=== PATIENT | female | born 1985 | race American Indian/Alaskan Native ===

== ENCOUNTER 2016-09-12 19:21 | Outpatient (CLI) | payer OTHER, MEDICAID ==
[2016-09-12 20:32] VITALS: BP 120/71
== END 2016-09-12 20:47 | disposition home or self-care (01) ==
LOC: TRG 19:21
PROVIDERS: ATTEND Obstetrics & Gynecology
DX: O47.1 False labor at or after 37 completed weeks of gestation (principal); Z3A.39 39 weeks gestation of pregnancy
CPT/HCPCS: 59025

== ENCOUNTER 2016-09-14 13:12 | Inpatient (IN) | payer OTHER, MEDICAID ==
[2016-09-14] MEDS ORDERED: ePHEDrine SULFATE IV PRN (14:51)
[2016-09-14] MEDS ORDERED: STADOL IV PRN (14:51)
[2016-09-14] MEDS ORDERED: BRETHINE SUB-Q PRN (14:51)
[2016-09-14] MEDS ORDERED: XYLOCAINE 2% INFILTRATI ONE (14:51)
[2016-09-14] MEDS ORDERED: BRETHINE IVP PRN (14:56)
[2016-09-14] MEDS ORDERED: PITOCin/NS 30 UNIT/500ML 30 UNITS/500 ML BAG IV SCH (15:00)
[2016-09-14] MEDS ORDERED: PITOCin/NS 20 UNIT/1000ML DRIP 20 UNITS/1,000 ML BAG IV SCH (15:00)
[2016-09-14] MEDS ORDERED: LACTATED RINGERS 1,000 ML IV SCH (15:00)
[2016-09-14] MEDS ORDERED: PITOCin/NS 20 UNIT/1000ML DRIP 20,000 MILLIUNITS/1,000 ML BAG IV ONE (15:01)
[2016-09-14] MEDS ORDERED: LACTATED RINGERS 1,000 ML ONE (15:01)
[2016-09-14] MEDS ORDERED: STADOL ONE (15:01)
[2016-09-14 15:41] LABS: Hematocrit 33.8 % (30.3-42.9); Mean Corpuscular HGB Conc 33 % (30-34); Mean Corpuscular Hemoglobin 27 pg (28-32); Mean Corpuscular Volume 84 fl (79-97); Platelet Count 238 K/mm3 (140-440); Red Blood Count 4.02 M/mm3 (3.65-5.03); White Blood Count 8.7 K/mm3 (4.5-11.0)
[2016-09-14] MEDS ORDERED: SUBLIMAZE ONE (16:28)
--- NOTE | 2016-09-14 16:46 | History and Physical Report ---
History of Present Illness Date of admission: 09/14/16 14:27 History of present illness: Presented to labor and delivery complaints of regular contractions. Initial exam in triage revealed the patient was 4 cm dilated. Patient with uncomplicated course except for excessive weight gain over 40 pounds during the . Patient being admitted term in labor. Regularity: regular Menses every: 26 days Duration: 6 LMP: 12/09/2015 LMP reliability: definite LMP character: normal test type: urine test Date: 01/24/2016 BC at conception: none EDC Calculations LMP: 09/14/2016 EDC Confirmation: 09/14/2016 Past History : 3 # 1 Delivery date: 12/2000 Weeks Gestation: term labor: no Delivery type: Anesthesia type: none Delivery location: [facility] Sex: Female weight: 7-6 # 2 Delivery date: 06/2005 Weeks Gestation: term Delivery type: Anesthesia type: none Delivery location: [facility] Sex: Female weight: 6-7 Past Medical History: ? False positive Hep C Past Surgical History: : negative Past Medical History Abnormal PAP: negative MATHEW Exposure: negative Infertility: negative Uterine Anomaly: negative Uterine Surgery (not C/S): negative Other Gynecologic Problems: negative Social Hx: Patient is single Smoking History: Patient has never smoked. Infection History Hx of STD: chlamydia HIV Risk Eval: low risk Hepatitis B Risk Eval: low risk Personal hx. of genital herpes: no Partner hx. of genital herpes: no Rash, Viral, or Febrile illness since last LMP? no Varicella/Chicken Pox Status: Immunized Infection History Comments: GC hx Genetic History Congenital Heart Defect: Mom: no Dad: no Nehemiah Disease: Mom: no Dad: no Thalassemia Mom: no Dad: no Neural Tube Defect Mom: no Dad: no Down's Syndrome Mom: no Dad: no Isaías-Sachs Mom: no Dad: no Sickle Cell Disease/Trait Mom: no Dad: no Hemophilia Mom: no Dad: no Muscular Dystrophy Mom: no Dad: no Cystic Fibrosis Mom: no Dad: no Crescent Chorea Mom: no Dad: no Mental Retardation Mom: no Dad: no Fragile X Mom: no Dad: no Other Genetic/Chromosomal Disorder Mom: no Dad: no Child w/other defect Mom: no Dad: no Enviromental Exposures Xray Exposure: no Medication, drug, or alcohol use since LMP: no Chemical/Other Exposure: no Exposure to Cat Liter: no Hx of Parvovirus (Fifth Disease): no Occupational Exposure to Children: none Current Allergies (reviewed today): No known allergies Past History Past Medical History: other (See HPI) Past Surgical History: other (See HPI) 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) Family/Genetic History: other (See HPI) Social history: other (See HPI) - Obstetrical History Expected Date of Delivery: 09/14/16 Actual Gestation: 40 Week(s) 0 Day(s) : 3 Para: 2 Hx # Term Pregnancies: 2 Number of Pregnancies: 0 Spontaneous Abortions: 0 Induced : 0 Number of Living Children: 2 Medications and Allergies Allergies Allergy/AdvReac Type Severity Reaction Status Date / Time No Known Allergies Allergy Unverified 09/12/16 19:50 Active Meds: Active Medications Butorphanol Tartrate (Stadol) 2 mg IV Q2H PRN PRN Reason: Pain , Severe (7-10) Lactated Ringer's (Lactated Ringers) 1,000 mls @ 125 mls/hr IV DIRECT LUZ ELENA Oxytocin/Sodium Chloride (Pitocin/Ns 20 Unit/1000ml Drip) 20 units in 1,000 mls @ 125 mls/hr IV DIRECT LUZ ELENA Oxytocin/Sodium Chloride (Pitocin/Ns 30 Unit/500ml) 30 units in 500 mls @ 1 mls /hr IV TITR LUZ ELENA; 1 MILLIUNITS/MIN PRN Reason: Protocol Last Admin: 09/14/16 15:59 Dose: 1 milliunits/min, 1 mls/hr Mineral Oil (Mineral Oil) 30 ml PO QHS PRN PRN Reason: Constipation - Vital Signs Vital signs: Vital Signs Pulse BP 82 151/89 09/14/16 13:34 09/14/16 13:34 Temp Pulse Resp BP Pulse Ox 98.5 F 75 20 141/85 97 09/14/16 15:35 09/14/16 15:42 09/14/16 15:35 09/14/16 15:42 09/14/16 15:33 - Physical Exam Breasts: Positive: deferred Cardiovascular: Regular rate Lungs: Positive: Normal air movement Abdomen: Positive: normal appearance, soft, other (tattoos) Genitourinary (Female): Positive: normal external genitalia Anus/Rectum: Positive: normal perianal skin Extremities: Positive: normal - Obstetrical FHR: category 1 Uterine Contraction Monitor Mode: External Uterine Contraction Pattern: Regular Uterine Contraction Intensity: Strong/Firm Results Result Diagrams: 09/14/16 15:25 Abnormal lab results 09/14/16 Range/Units 15:25 MCH 27 L (28-32) pg RDW 16.0 H (13.2-15.2) % All other labs normal. Assessment and Plan - Patient Problems (1) 40 weeks gestation of Current Visit: Yes Status: Acute (2) Active labor at term Current Visit: Yes Status: Acute Plan to address problem: Admit to labor and delivery follow normal labor protocol. See orders in chart
[2016-09-14] MEDS ORDERED: SUBLIMAZE IV ONE (17:00)
--- NOTE | 2016-09-14 17:33 | Procedure Note ---
OB Delivery Note - Delivery Date of Delivery: 09/14/16 Surgeon: ELIDIA MARTINEZ Estimated blood loss: other (400cc) - Vaginal Delivery presentation: vertex Delivery position: OA Intrapartum events: none Delivery induction: none Delivery monitor: external FHT, external uterine Route of delivery: Delivery placenta: spontaneous Episiotomy: none Delivery laceration: 1st degree Anesthesia: intravenous - Infant A at 1 minute: 8 at 5 minutes: 9 Gender: Male
[2016-09-14] MEDS ORDERED: DULCOLAX PR PRN (18:39)
[2016-09-14] MEDS ORDERED: TYLENOL PO PRN (18:39)
[2016-09-14] MEDS ORDERED: MILK OF MAGNESIA PO PRN (18:39)
[2016-09-14] MEDS ORDERED: SODIUM CHLORIDE FLUSH SYRINGE 10 ML IV NR (18:39)
[2016-09-14] MEDS ORDERED: LANSINOH TP PRN (18:39)
[2016-09-14] MEDS ORDERED: PHENERGAN PO PRN (18:39)
[2016-09-14] MEDS ORDERED: BENADRYL PO PRN (18:39)
[2016-09-14] MEDS ORDERED: TUCKS PAD TP PRN (18:39)
[2016-09-14] MEDS ORDERED: DERMOPLAST TP PRN (18:39)
[2016-09-14] MEDS: NORCO 5/325 PO PRN (18:58)
[2016-09-14] MEDS ORDERED: MINERAL OIL PO PRN (22:00)
[2016-09-14] MEDS: MOTRIN PO SCH (23:05)
[2016-09-15] MEDS: MOTRIN PO SCH ×3 (01:00→20:50)
[2016-09-15] MEDS: NORCO 5/325 PO PRN ×3 (01:30→20:50)
[2016-09-15 08:04] LABS: Hematocrit 29.9 % (30.3-42.9); Hemoglobin 9.6 gm/dl (10.1-14.3)
--- NOTE | 2016-09-15 08:22 | Progress Note ---
Assessment and Plan - Patient Problems (1) 40 weeks gestation of Current Visit: Yes Status: Acute (2) Active labor at term Current Visit: Yes Status: Acute (3) Encounter for full-term uncomplicated delivery Current Visit: Yes Status: Acute Subjective - Subjective Patient reports: appetite normal (patient was dizzy with first ambulation now no problem), voiding normally, pain well controlled, ambulating normally : doing well (Some problems with latching on) Objective - Vital Signs Latest vital signs: Vital Signs Temp Pulse Pulse Resp BP BP Pulse Ox 09/14/16 23:40 98.6 F 74 16 124/72 09/14/16 19:40 98.6 F 72 22 142/72 09/14/16 18:25 104 H 16 160/82 09/14/16 18:15 97.2 F L 09/14/16 18:09 85 130/77 09/14/16 17:51 77 167/93 09/14/16 17:40 74 167/88 09/14/16 17:25 74 174/126 09/14/16 17:10 82 150/91 09/14/16 15:42 75 141/85 09/14/16 15:35 98.5 F 20 141/85 09/14/16 15:33 75 146/84 97 09/14/16 15:20 18 09/14/16 13:45 98.2 F 136/78 09/14/16 13:35 80 136/78 09/14/16 13:34 82 151/89 Intake and Output 09/14/16 09/15/16 09/15/16 21:59 06:59 14:59 Intake Total Output Total Balance Intake: Oral Intake, Free Water Output: Urine Void Other: Total, Intake Amount Total, Output Amount Voiding Method # Voids Void Estimated Blood Loss - Exam Breasts: Present: normal Cardiovascular: Present: Regular rate Abdomen: Present: normal appearance, soft Uterus: Present: normal, firm Extremities: Present: normal, edema - Labs Labs: Abnormal lab results 09/14/16 09/15/16 Range/Units 15:25 07:35 Hgb 9.6 L (10.1-14.3) gm/dl Hct 29.9 L (30.3-42.9) % MCH 27 L (28-32) pg RDW 16.0 H (13.2-15.2) %
[2016-09-15] MEDS: COLACE PO SCH ×2 (14:48→22:00)
[2016-09-15] MEDS: PRENATAL VITAMIN PO SCH (14:50)
[2016-09-16] MEDS: MOTRIN PO SCH ×3 (05:08→11:59)
--- NOTE | 2016-09-16 08:26 | Discharge Summary ---
Providers - Providers Date of Admission: 09/14/16 14:27 Date of discharge: 09/16/16 (pt desires d/c ) Attending physician: ELIDIA MARTINEZ 09/14/16 18:39 Consult to Statistician Theoretical [CONS] Routine Reason For Exam: assistance with , SNS Primary care physician: ELIDIA MARTINEZ Hospitalization Reason for admission: active labor Delivery: Episiotomy: none Laceration: none Incision: normal Other procedures: none complications: none Discharge diagnosis: IUP at term delivered baby: male Hospital course: uncomplicated vaginal delivery Pt w/o complaint VSS FF below umb Lochia small Perineum intact H&H9/29 drop r/t blood loss from delivery Pt is asymptomatic Doing well s/p vag del P: d/c today with instructions RX'es provided Condition at discharge: Good Disposition: DISCHARGED TO HOME OR SELFCARE - Discharge Diagnoses (1) Encounter for full-term uncomplicated delivery Status: Acute Comment: rto 4-6 weeks for PP care 1 week for circ Plan - Discharge Medications Prescriptions: Docusate Sodium [Colace] 100 mg PO BID PRN #60 capsule PRN Reason: Constipation Ferrous Sulfate [Feosol 325 MG tab] 325 mg PO BID #60 tablet Ibuprofen [Motrin 800 MG tab] 800 mg PO TID PRN #30 tablet PRN Reason: Pain Lidocain2.5%/Prilocai2.5% [Emla] 5 gm TP PRN #1 tube - Provider Discharge Summary Activity: routine, no sex for 6 weeks, no heavy lifting 4 weeks, no strenuous exercise Diet: routine Instructions: routine Additional instructions: [] Smoking cessation referral if applicable(refer to patient education folder for contact #) [] Refer to [facility] Booklet Call your doctor immediately for: * Fever > 100.5 * Heavy vaginal bleeding ( >1 pad per hour) * Severe persistent headache * Shortness of breath * Reddened, hot, painful area to leg or breast * Drainage or odor from incision. * Keep incision clean and dry at all times and follow doctor's instructions regarding bathing/showering - Follow up plan Follow up: ELIDIA MARTINEZ MD [Primary Care Provider] - 6 Weeks (Please call [phone] to schedule your visit in 4-6 weeks and your son's circumcision in 1 week. Bring the EMLA cream with you to his visit. Take medications as prescribed. Call with concerns. )
[2016-09-16] MEDS ORDERED: DEPO-PROVERA (CONTRACEPTION) IM ONE ×2 (08:27→14:36)
[2016-09-16 09:36] VITALS: BP 106/50
[2016-09-16] MEDS: COLACE PO SCH (10:53)
[2016-09-16] MEDS: PRENATAL VITAMIN PO SCH (10:53)
[2016-09-16] MEDS: NORCO 5/325 PO PRN (11:59)
== END 2016-09-16 15:15 | disposition home or self-care (01) | DRG 775 ==
LOC: TRG 13:12 → LD 14:27 → OB 18:28
PROVIDERS: ADMIT Obstetrics & Gynecology; ATTEND Obstetrics & Gynecology
PROC: 10E0XZZ Delivery of Products of Conception, External Approach (ICD-10-PCS; principal; 2016-09-14)
PROC: 0HQ9XZZ Repair Perineum Skin, External Approach (ICD-10-PCS; 2016-09-14)
DX: O70.0 First degree perineal laceration during delivery (principal); R71.0 Precipitous drop in hematocrit; Z3A.40 40 weeks gestation of pregnancy; Z37.0 Single live birth
CPT/HCPCS: 36415; 85014; 85018; 85027; 86850; 86900; 86901; 99211; G0463; J0595; J1050; J2590; J3010; J7120

== ENCOUNTER 2020-04-05 10:14 | Day surgery (SDC) | payer MEDICAID ==
--- NOTE | 2020-04-03 16:29 | History and Physical Report ---
History of Present Illness Date of examination: 04/03/20 History of present illness: Patient has been reassessed/reevaluated. H&P has been reviewed. No interval changes. This is a 34 years old female who presents with menstrual disorder. She complains of heavy bleeding.. Has tried OCPs, NSAIDs, and now is using Lysteda. Pt states she likes the Lysteda but it is too expensive. Denies SOB, chest pain, lightheadedness, blurry vision, or dizziness with cycles. Reports regular monthly cycles q 26 days lasting 6-7 day with heavy bleeding. Changes pads q 1 to 2 hours. Has a hx of abnormal pap. Patient's work up has included hysterosonogram which revealed normal uterine finding and a benign endometrial biposy. Patient's symptoms when present disrupts her normal daily activities Patient desires definitive treatment Vital Signs: Patient Profile: 34 Years Old Female LMP: 03/16/2020 Height: 65 inches (165.10 cm) Weight: 271 pounds BMI: 45.09 Temp: 98.1 degrees F BP sittin / 80 (left arm) Menstrual History: LMP (date): 03/16/2020 On BCP's at conception: no Current Method of Contraception: None Date of Last Pap Smear: 04/30/2019 Past History : 3 Term Births: 3 Premature Births: 0 Living Children: 3 Para: 3 Aborta: 0 Elect. Ab: 0 Spont. 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 of genital herpes: yes Partner hx. of genital herpes: no Hx of STD: chlamydia Other: GC hx Current Allergies: No known allergies Past Medical History: Negative Past Medical History Past Surgical History: Negative Family History Summary: General Comments - FH: Family History of Diabetes Family History of Hypertension Social History: Patient is single Smoking History: Patient has never smoked. Risk Factors: Smoked Tobacco Use: Never smoker Smokeless Tobacco Use: Never Passive smoke exposure: no Drug use: no HIV high-risk behavior: no Caffeine use: 0 drinks per day Alcohol use: yes Type: occ Exercise: yes Times per week: 5 Seatbelt use: 100 % PAP Smear History: Date of Last PAP Smear: 04/30/2019 Review of Systems General Complains of fatigue. Denies fever, chills, sweats, anorexia, weakness, malaise, weight loss and sleep disorder. Complains of menorrhagia. Denies vaginal discharge, incontinence, dysuria, hematuria, urinary frequency, amenorrhea, abnormal vaginal bleeding, pelvic pain, genital sores, decreased libido, painful periods, painful sex, urinary urgency, hot flashes, vaginal dryness, vaginal itching and vaginal odor. CV Denies chest pains, palpitations, syncope, dyspnea on exertion, orthopnea, PND and peripheral edema. Resp Denies cough, dyspnea at rest, excessive sputum, hemoptysis, wheezing and pleurisy. GI Denies nausea, vomiting, diarrhea, constipation, change in bowel habits, abdominal pain, melena, hematochezia, jaundice, gas/bloating, indigestion/heartburn, dysphagia and odynophagia. Breast Denies left breast lump, right breast lump, nipple discharge, bloody discharge from nipple, breast pain, abnormal mammogram and breast enlargement. Psych Denies depression, anxiety, irritability and mood swings. Past History Past Medical History: No medical history, other (SEE HPI ) Past Surgical History: No surgical history (SEE HPI FOR DETAILS), Other (SEE HPI FOR DETAILS) Social history: full code, other (SEE HPI FOR DETAILS) Family history: other (SEE HPI FOR DETAILS) Medications and Allergies Allergies Allergy/AdvReac Type Severity Reaction Status Date / Time No Known Allergies Allergy Verified 04/05/20 11:10 Home Medications Medication Instructions Recorded Confirmed Last Taken Type No Known Home Medications [No 04/03/20 04/05/20 Unknown History Reported Home Medications] Review of Systems Constitutional: other (SEE HPI FOR DETAILS) Exam - Physical Exam Narrative exam: HEENT: normocephalic, no lesions or deformities Skin no ulcers, xanthomas Chest: respiratory effort normal, clear to auscultation CV: regular, normal S1-S2, no murmur, no rub, no gallop Abdomen: Obese, soft, non-tender, no masses Neuro: no gross anomalities Extremities: no edema 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 No evidence of cystocele or rectocele. Cervix: normal appearance, no lesions, no discharge Uterus: unable to palpate due to obesity Adnexae: unable to palpate due to obesity Rectovaginal: exam defered Results - Labs CBC & Chem 7: 04/04/20 08:45 Assessment and Plan - Patient Problems (1) Menorrhagia Current Visit: No Status: Acute Qualifiers: Menorrhagia type: with regular cycle Qualified Code(s): N92.0 - Excessive and frequent menstruation with regular cycle Plan to address problem: Medical and surgical treatment options discussed Conservative therapies have failed. Patient desires definitive treatment Patient desires definitive treatment Patient desire endometrial ablation. She understands that this procedure only treats bleeding and is not a treatment for dysmenorrhea or myomas. Discussed risk of surgery including infection, bleeding and risk of perforating her uterus. Discuused postoperative symptom of vaginal duscharge and uterine cramping. Questions answered. Patient understands and desires to proceed (2) Body mass index 45.0-49.9, adult Current Visit: No Status: Chronic
[2020-04-04 09:10] LABS: Hematocrit 34.9 % (30.3-42.9); Hemoglobin 11.8 gm/dl (10.1-14.3); Mean Corpuscular HGB Conc 34 % (30-34); Mean Corpuscular Volume 83 fl (79-97); Platelet Count 317 K/mm3 (140-440); Red Blood Count 4.23 M/mm3 (3.65-5.03)
[~2020-04-05 10:14] MED LIST: LACTATED RINGERS 1,000 ML IV SCH; MIDAZOLAM 2 MG/2 ML INJ IV NR
[2020-04-05] MEDS ORDERED: ONDANSETRON 4 MG/2 ML INJ IV PRN (10:28)
--- NOTE | 2020-04-05 10:28 | Anesthesia Day of Surgery ---
Anesthesia Day of Surgery - Day of Surgery Patient Examined: Yes Patient H&P Reviewed: Yes Patient is NPO: Yes
--- NOTE | 2020-04-05 10:28 | Anesthesia Consultation ---
Anesthesia Consult and Med Hx Date of service: 04/05/20 - Airway Anesthetic Teeth Evaluation: Good ROM Head & Neck: Adequate Mental/Hyoid Distance: Adequate Mallampati Class: Class II Intubation Access Assessment: Probably Good - Pulmonary Exam CTA: Yes - Cardiac Exam Cardiac Exam: RRR - Pre-Operative Health Status ASA Pre-Surgery Classification: ASA2 Proposed Anesthetic Plan: General - Pulmonary Hx Smoking: No Hx Respiratory Symptoms: No Hx Sleep Apnea: No - Cardiovascular System Hx Hypertension: No Hx Heart Attack/AMI: No - Central Nervous System CVA: No - Gastrointestinal Hx Gastroesophageal Reflux Disease: No - Endocrine Hx Renal Disease: No Hx Liver Disease: No Hx Insulin Dependent Diabetes: No Hx Non-Insulin Dependent Diabetes: No Hx Thyroid Disease: No - Other Systems Hx Obesity: Yes (BMI 43) - Additional Comments Anesthesia Medical History Comments: No hx anesthetic complications.
[2020-04-05] MEDS ORDERED: propofoL 200 MG/20 ML VIAL IV ONE (11:59)
[2020-04-05] MEDS ORDERED: SODIUM CHLORIDE 0.9% IRRIG SOLN 3000 ML IR ONE (12:00)
[2020-04-05] MEDS ORDERED: KETOROLAC 30 MG/1 ML INJ ONE (12:06)
[2020-04-05] MEDS ORDERED: ONDANSETRON 4 MG/2 ML INJ ONE (12:06)
[2020-04-05] MEDS ORDERED: dexAMETHasone 20 MG/5 ML VIAL ONE (12:06)
[2020-04-05] MEDS ORDERED: fentaNYL 100 MCG/2 ML INJ ONE (12:06)
[2020-04-05] MEDS: fentaNYL 100 MCG/2 ML INJ IV PRN ×2 (12:43→12:51)
--- NOTE | 2020-04-05 12:46 | Short Stay Summary ---
Short Stay Documentation Date of service: 04/05/20 - History Past Medical History: No medical history, other (SEE HPI ) Past Surgical History: No surgical history (SEE HPI FOR DETAILS), Other (SEE HPI FOR DETAILS) Social history: full code, other (SEE HPI FOR DETAILS) - Allergies and Medications Current Medications: Allergies No Known Allergies Allergy (Verified 04/05/20 11:10) Home Medications Medication Instructions Recorded Confirmed Last Taken Type No Known Home Medications [No 04/03/20 04/05/20 Unknown History Reported Home Medications] Active Medications Fentanyl (Sublimaze) 50 mcg IV Q5MIN PRN PRN Reason: Pain , Severe (7-10) Stop: 04/05/20 22:00 Lactated Ringer's (Lactated Ringers) 1,000 mls @ 100 mls/hr IV DIRECT LUZ ELENA Stop: 04/05/20 23:59 Last Admin: 04/05/20 10:50 Dose: 100 mls/hr Documented by: Midazolam HCl (Versed) 2 mg IV PREOP NR Stop: 04/05/20 21:00 Last Admin: 04/05/20 11:37 Dose: 2 mg Documented by: Ondansetron HCl (Zofran) 4 mg IV ONCE PRN PRN Reason: Nausea And Vomiting Stop: 04/05/20 13:00 - Physical exam General appearance: no acute distress Lungs: Normal air movement Breasts: deferred Heart: Regular rate Gastrointestinal: normal Female Genitourinary: normal Rectal Exam: deferred Extremities: no ischemia - Brief post op/procedure progress note Date of procedure: 04/05/20 (See dictated operative note for details) - Hospital course Hospital course: Patient was admitted underwent the above him procedure without any complications. Patient will be discharged with follow-up in office in 1-2 weeks for postop check. - Disposition Condition at discharge: Good Disposition: DC-01 TO HOME OR SELFCARE - Discharge Diagnoses (1) Menorrhagia Status: Acute Qualifiers: Menorrhagia type: with regular cycle Qualified Code(s): N92.0 - Excessive and frequent menstruation with regular cycle (2) Body mass index 45.0-49.9, adult Status: Chronic Short Stay Discharge Plan Activity: no restrictions, advance as tolerated Diet: regular Additional Instructions: Patient to call office for any nausea, vomiting, excessive vaginal bleeding or pain uncontrolled by pain medicine. Follow up with: JIMY AMES MD [Primary Care Provider] - 7 Days
[2020-04-05] MEDS ORDERED: HYDROcodone/ACETAMINOPHEN 5-325 MG TAB PO PRN (12:52)
[2020-04-05 13:38] VITALS: BP 129/65
--- NOTE | 2020-04-05 18:01 | Post Anesthesia Evaluation ---
- Post Anesthesia Evaluation Patient Participated: Yes Airway Patent: Yes Stable Respiratory Function: Yes Nausea/Vomiting: No Temp > 96.8F: Yes Pain Manageable: Yes Adequeate Hydration: Yes Anesthesia Complications: No
--- NOTE | 2020-04-20 11:58 | Operative Report ---
Operative Report Operative Report: Kelle Gerber Date of procedure: March 09, 2020 Pre-operative diagnosis: Menorrhagia Post-operative diagnosis: Same Procedure name(s): NovaSure endometrial ablation with hysteroscopy Surgeon: Washington Huggins MD Hair Dresser: None Anesthesia: General EBL: Minimal Complications: None Findings: Patient with thickened endometrium both tubal ostium identified Specimen(s): [] Procedure: Patient was brought to operating room. Where general anesthesia was induced on difficulty. She was placed in the dorsal lithotomy position. Prepped and draped in usual sterile manner. Urinary bladder was emptied with a red rubber catheter. Speculum was placed in the vagina. The cervical length and uterine cavity was then assessed with a sound. Cervical length was 4.0 cm the total uterine cavity was 10 cm. The hysteroscope was then placed through the cervical os. With the findings as noted above. The NovaSure was then placed through the cervical os the uterine width was then measured at the 4.4 cm. After passing the testing for cavity integrity, and NovaSure ablation was then started. The power setting was at 145 and the procedure lasted 63 seconds. The NovaSure applicator was then removed. There was large amount of tissue on the NovaSure. Post procedure hysteroscopy showed a complete cavity ablation. Our instruments are removed. The patient tolerated the procedure well and was awakened in the operating room. Accompanied to recovery in good condition. Date of procedure: April 05, 2020 Pre-operative diagnosis: Menorrhagia Post-operative diagnosis: Same Procedure name(s): Operative hysteroscopy with MyoSure Surgeon: Washington Huggins MD Hair Dresser: Anesthesia: Gen. EBL: Minimal Complications: None Findings: Patient with thickened endometrial seen Specimen(s): Uterine mass Procedure: Patient was brought into the operating room, where general anesthesia was induced without any difficulty. Patient was placed in dorsal lithotomy position. Prep and drape in the usual sterile manner. Timeout procedure was performed. The patient's bladder was emptied with a red rubber catheter. Speculum was placed in the vagina. Tenaculum was placed at 12:00 on the cervix. The cervical os was dilated to a 19 Syrian diameter. The hysteroscope was placed and the findings noted above. The MyoSure device was primed. The device was placed through the cervical os. The mass was then removed using the MyoSure. The mass was completely removed with no evidence of puncture on the uterine wall. All instruments were then removed. The patient was awakened in the operating room and accompanied to recovery room in good condition.
--- NOTE | 2020-04-20 12:00 | Operative Report ---
Operative Report Operative Report: Date of procedure: April 05, 2020 Pre-operative diagnosis: Menorrhagia Post-operative diagnosis: Same Procedure name(s): NovaSure endometrial ablation with hysteroscopy Surgeon: Washington Huggins MD General Education Instructor: None Anesthesia: General EBL: Minimal Complications: None Findings: Thickened endometrium Specimen(s): [] Procedure: Patient was brought to operating room. Where general anesthesia was induced on difficulty. She was placed in the dorsal lithotomy position. Prepped and draped in usual sterile manner. Urinary bladder was emptied with a red rubber catheter. Speculum was placed in the vagina. The cervical length and uterine cavity was then assessed with a sound. Cervical length was 4.0 cm the total uterine cavity was 10 cm. The hysteroscope was then placed through the cervical os. With the findings as noted above. The NovaSure was then placed through the cervical os the uterine width was then measured at the 4.4 cm. After passing the testing for cavity integrity, and NovaSure ablation was then started. The power setting was at 145 and the procedure lasted 63 seconds. The NovaSure applicator was then removed. There was large amount of tissue on the NovaSure. Post procedure hysteroscopy showed a complete cavity ablation. Our instruments are removed. The patient tolerated the procedure well and was awakened in the operating room. Accompanied to recovery in good condition.
== END 2020-04-05 14:10 | disposition home or self-care (01) ==
LOC: OR 10:14
PROVIDERS: ATTEND Obstetrics & Gynecology
DX: N92.0 Excessive and frequent menstruation with regular cycle (principal); Z20.828 Contact with and (suspected) exposure to other viral communicable diseases; E66.9 Obesity, unspecified; Z98.890 Other specified postprocedural states; Z79.899 Other long term (current) drug therapy; Z68.41 Body mass index [BMI] 40.0-44.9, adult
CPT/HCPCS: 36415; 58563; 84703; 85027; A4217; J1100; J1885; J2250; J2405; J2704; J3010; J7120; U0003

== ENCOUNTER 2020-11-23 06:33 | Observation (INO) | payer OTHER, MEDICAID ==
[2020-11-22 10:04] LABS: Blood Urea Nitrogen 12 mg/dL (7-17); Calcium 8.7 mg/dL (8.4-10.2); Hemolysis Index 12
--- NOTE | 2020-11-22 10:10 | Anesthesia Consultation ---
Anesthesia Consult and Med Hx Date of service: 11/23/20 - Airway Anesthetic Teeth Evaluation: Good (Upper Braces) ROM Head & Neck: Adequate Mental/Hyoid Distance: Adequate () Mallampati Class: Class III Intubation Access Assessment: Probably Good - Pre-Operative Health Status ASA Pre-Surgery Classification: ASA2 Proposed Anesthetic Plan: General Nerve Block: TAP - Pulmonary Hx Smoking: No Hx Asthma: No Hx Respiratory Symptoms: No COPD: No Hx Pneumonia: No Hx Sleep Apnea: No - Cardiovascular System Hx Hypertension: No Hx Heart Attack/AMI: No - Central Nervous System Hx Seizures: No CVA: No Hx Psychiatric Problems: No - Gastrointestinal Hx Gastroesophageal Reflux Disease: No - Endocrine Hx Renal Disease: No Hx End Stage Renal Disease: No Hx Liver Disease: No Hx Insulin Dependent Diabetes: No Hx Non-Insulin Dependent Diabetes: No Hx Thyroid Disease: No Hx Hypothyroidism: No Hx Hyperthyroidism: No - Hematic Hx Anemia: Yes Hx Sickle Cell Disease: No - Other Systems Hx Alcohol Use: No Hx Cancer: No Hx Obesity: Yes (BMI 43)
[2020-11-22 10:14] LABS: BUN/Creatinine Ratio 20
[~2020-11-23 06:33] MED LIST changes: +ACETAMINOPHEN 500 MG TAB PO NR; +CELECOXIB 200 MG CAP PO NR; +MAGNESIUM OXIDE 400 MG TAB PO NR; +fentaNYL 100 MCG/2 ML INJ IV NR
[2020-11-23] MEDS ORDERED: LIDOCAINE MPF (2%) 20 MG/1 ML VIAL 5 ML ONE (07:01)
[2020-11-23] MEDS ORDERED: fentaNYL 100 MCG/2 ML INJ ONE (07:01)
[2020-11-23] MEDS ORDERED: HYDROmorphone 1 MG/1 ML INJ ONE (07:01)
[2020-11-23] MEDS ORDERED: ROCURONIUM 50 MG/5 ML INJ IV ONE (07:01)
[2020-11-23] MEDS ORDERED: propofoL 200 MG/20 ML VIAL IV ONE (07:02)
--- NOTE | 2020-11-23 07:06 | Anesthesia Day of Surgery ---
Anesthesia Day of Surgery - Day of Surgery Patient Examined: Yes Patient H&P Reviewed: Yes Patient is NPO: Yes
[2020-11-23] MEDS ORDERED: BUPIVACAINE/PF (0.25%) 2.5 MG/ML 30 ML VIAL INFILTRATI ONE (07:10)
[2020-11-23] MEDS ORDERED: ePHEDrine SULFATE 50 MG/1 ML INJ ONE (07:10)
[2020-11-23] MEDS ORDERED: dexAMETHasone 4 MG/ML VIAL ONE (07:11)
[2020-11-23] MEDS ORDERED: NEOMY 40 MG/POLYMYXIN B 200,000 UNITS/ML (GU) AMPULE IR ONE ×2 (07:13→08:48)
[2020-11-23 07:20] LABS: Hematocrit 35.2 % (30.3-42.9); Hemoglobin 11.5 gm/dl (10.1-14.3); Mean Corpuscular HGB Conc 33 % (30-34); Mean Corpuscular Volume 82 fl (79-97); Platelet Count 322 K/mm3 (140-440)
[2020-11-23 07:23] LABS: Red Cell Distribution Width 20.7 % (13.2-15.2)
--- NOTE | 2020-11-23 07:23 | History and Physical Report ---
History of Present Illness Date of examination: 11/17/20 History of present illness: Patient has been reassessed/reevaluated. H&P has been reviewed. No interval changes. This is a 35 years old female who presents with menstrual disorder. The symptoms began 4-6 months ago. She complains of heavy bleeding, dysmenorrhea, clotting, fatigue and cramping, but denies irregular menses, mid-cycle spotting, lack of menses, history of ovarian cysts, history of thyroid disease, history of fibroids, history of PCOS, history of bleeding disorder and lightheadedness. Menses started at age 12. Interval between menses is 26 days and 29 days. Menstrual flow lasts 5 days and 7 days. Patient reports that for pain she uses ibuprofen. Patient's work up has included hysterosonogram with a benign endometrial biopsy and revealed no myomas. Patient also has had an endotrial ablation done. Patient's symptoms when present disrupts her normal daily activities Conservative therapies have failed. Patient desires definitive treatment Vital Signs: Patient Profile: 35 Years Old Female LMP: 10/27/2020 Height: 65 inches (165.10 cm) Weight: 267 pounds BMI: 44.43 Temp: 97.9 degrees F BP sittin / 80 (left arm) Menstrual History: LMP (date): 10/27/2020 Current Method of Contraception: None Date of Last Pap Smear: 04/30/2019 Past History : 3 Term Births: 3 Premature Births: 0 Living Children: 3 Para: 3 Aborta: 0 Elect. Ab: 0 Spont. Ab: 0 Ectopics: 0 # 1 Delivery date: 12/2000 Weeks Gestation: term labor: no Delivery type: Anesthesia type: none Delivery location: [facility] Infant Sex: Female weight: 7-6 # 2 Delivery date: 06/2005 Weeks Gestation: term Delivery type: Anesthesia type: none Delivery location: [facility] Sex: Female weight: 6-7 # 3 Delivery date: 09/14/2016 Weeks Gestation: 40 Delivery type: Vaginal Hours of labor: 8 Anesthesia type: IV medication Delivery location: [facility] Infant Sex: male weight: 8.81 Name: Dom BLUM History Uterine Surgery (not C/S): negative Operations: Novasure Endometrial Ablation: (04/05/2020) Hospitalizations: negative Anesthesia Complications: negative Abnormal PAP: negative Uterine Anomaly: negative MATHEW Exposure: negative Infertility: negative Infection History HIV Risk Eval: no Hep B Immunized: yes TB exposure: no Personal hx. of genital herpes: yes Partner hx. of genital herpes: no Hx of STD: chlamydia Other: GC hx Current Allergies (reviewed today): No known allergies Past Medical History: Anemia Past Surgical History: Novasure Endometrial Ablation: (04/05/2020) Family History Summary: Reviewed history Last on 10/23/2020 and no changes required:11/21/2020 General Comments - FH: Family History of Diabetes Family History of Hypertension Social History: Patient is single Smoking History: Patient has never smoked. Risk Factors: Smoked Tobacco Use: Never smoker Smokeless Tobacco Use: Never Passive smoke exposure: no Drug use: no HIV high-risk behavior: no Caffeine use: 0 drinks per day Alcohol use: yes Type: social Exercise: yes Times per week: 5 Seatbelt use: 100 % PAP Smear History: Date of Last PAP Smear: 04/30/2019 Review of Systems General Complains of fatigue. Denies fever, chills, sweats, anorexia, weakness, malaise, weight loss and sleep disorder. Complains of menorrhagia, abnormal vaginal bleeding, pelvic pain and painful periods. Denies vaginal discharge, incontinence, dysuria, hematuria, urinary frequency, amenorrhea, genital sores, decreased libido, painful sex, urinary urgency, hot flashes, vaginal dryness, vaginal itching and vaginal odor. CV Denies chest pains, palpitations, syncope, dyspnea on exertion, orthopnea, PND and peripheral edema. Resp Denies cough, dyspnea at rest, excessive sputum, hemoptysis, wheezing and pleurisy. GI Denies nausea, vomiting, diarrhea, constipation, change in bowel habits, abdominal pain, melena, hematochezia, jaundice, gas/bloating, indigestion/heartburn, dysphagia and odynophagia. Breast Denies left breast lump, right breast lump, nipple discharge, bloody discharge from nipple, breast pain, abnormal mammogram and breast enlargement. Psych Denies depression, anxiety, irritability and mood swings. Past History Past Medical History: other (SEE HPI FOR DETAILS) Past Surgical History: Other (SEE HPI FOR DETAILS) Social history: full code, other (SEE HPI FOR DETAILS) Family history: other (SEE HPI FOR DETAILS) Medications and Allergies Allergies Allergy/AdvReac Type Severity Reaction Status Date / Time No Known Allergies Allergy Verified 11/21/20 17:05 Home Medications Medication Instructions Recorded Confirmed Last Taken Type Ferrous Sulfate [Iron 325 MG] 325 mg PO DAILY 11/21/20 11/21/20 Unknown History Phentermine HCl 15 mg PO DAILY 11/21/20 11/21/20 11/12/20 History Active Meds: Active Medications Cefazolin Sodium (Ancef/Sterile Water 2 Gm/20 Ml) 2 gm in 20 mls @ 80 mls/hr IV PREOP NR; Protocol Stop: 11/23/20 23:59 Review of Systems Constitutional: other (SEE HPI FOR DETAILS) Exam - Physical Exam Narrative exam: HEENT: normocephalic, no lesions or deformities Skin no ulcers, xanthomas Chest: respiratory effort normal, clear to auscultation CV: regular, normal S1-S2, no murmur, no rub, no gallop Abdomen: Obese, soft, non-tender, no masses Neuro: no gross anomalities Extremities: no clubbing, cyanosis, or edema PROFESSOR SCULPTURE Exams Vulva/Vagina: normal appearance, no discharge, lesions. No evidence of cystocele or rectocele. Cervix: normal appearance, no lesions, no discharge Uterus: unable to palpate due to obesity Adnexae: unable to palpate due to obesity Rectovaginal: exam defered Results - Labs CBC & Chem 7: 11/22/20 06:00 Assessment and Plan - Patient Problems (1) Menorrhagia Current Visit: No Status: Acute Qualifiers: Menorrhagia type: with irregular cycle Qualified Code(s): N92.1 - Excessive and frequent menstruation with irregular cycle Plan to address problem: Diagnosis explained to patient . Questions answered. Medical and surgical treatment options discussed Conservative therapies have failed. Patient desires definitive treatment Patient desires hysterectomy Discussed risks and benefits of laparotomy, laparoscopy, vaginal and robotic assisted approaches for hysterectomies. Patient desires robotic assisted total hysterectomy. Consent reviewed and signed . The risks and alternatives for this surgery were reviewed with the patient. Discuss the risks of the surgery including infection, bleeding possibly heavy enough to require a blood transfusion, possible damage to bowel, bladder or ureter. Patient understand that this surgery with make her sterile.Patient understands if her ovaries are removed she will become menopausal. Also if unable to complete robitcally a laparotomy may be required. Patient understands and desires to proceed. (2) Dysmenorrhea Current Visit: No Status: Acute Plan to address problem: Patient desires definitive treatment (3) Body mass index 45.0-49.9, adult Current Visit: No Status: Chronic Plan to address problem: Patient has been advised that obesity does increase risks of surgical and risks of post operative
[2020-11-23] MEDS ORDERED: ceFAZolin/Water 2 GM/20 ML 2 GM/20 ML SYRINGE IV NR (07:30)
[2020-11-23] MEDS ORDERED: ONDANSETRON 4 MG/2 ML INJ IV PRN (08:16)
[2020-11-23] MEDS ORDERED: HYDROmorphone 1 MG/1 ML INJ IV PRN ×3 (08:16→10:38)
[2020-11-23] MEDS ORDERED: SODIUM CHLORIDE 0.9% IRR 1,500 ML BOTTLE IR ONE (08:48)
[2020-11-23] MEDS ORDERED: SODIUM CHLORIDE 0.9% IRRIG SOLN 2000 ML IR ONE (08:48)
[2020-11-23] MEDS ORDERED: KETOROLAC 30 MG/1 ML INJ ONE (10:05)
[2020-11-23] MEDS ORDERED: ACETAMINOPHEN 325 MG TAB PO PRN (10:09)
[2020-11-23] MEDS ORDERED: IBUPROFEN 800 MG TAB PO PRN (10:09)
[2020-11-23] MEDS: HYDROcodone/ACETAMINOPHEN 5-325 MG TAB PO PRN ×2 (10:27→15:32)
[2020-11-23] MEDS: D5W/LACTATED RINGERS 1,000 ML IV SCH ×2 (10:32→21:21)
[2020-11-23] MEDS: HYDROmorphone 1 MG/1 ML INJ IV PRN ×4 (10:42→11:12)
[2020-11-23] MEDS ORDERED: KETOROLAC 30 MG/1 ML INJ IV ONE (11:00)
[2020-11-23 11:05] LABS: Band Neutrophils # (Manual) 0.1 K/mm3; Total Cells Counted 100
[2020-11-23 11:06] LABS: Platelet Estimate Consistent w Auto; RBC Morphology Normal
[2020-11-23] MEDS ORDERED: fentaNYL 100 MCG/2 ML INJ IV ONE (11:19)
[2020-11-23] MEDS ORDERED: hydrALAZINE 20 MG/1 ML INJ IV ONE (11:19)
--- NOTE | 2020-11-23 11:33 | Operative Report ---
Operative Report Operative Report: Date of procedure: November 23, 2020 Pre-operative diagnosis: Patient with dysmenorrhea and menorrhalgia which failed to be relieved with conservative measures Post-operative diagnosis: Same Procedure name(s):Robotic Assisted Total Hysterectomy with bilateral salpingectomy Surgeon: Washington Huggins MD Commercial Painter: Ninoska Gamboa, certified nutritionist Anesthesia: General EBL: 100 cc Complications: None Findings: Patient approximately 8-week size uterus with normal tubes and ovaries bilaterally Specimen(s): Uterus with cervix and bilateral fallopian tubes Procedure: Patient was brought to the operating room where general anesthesia was induced without difficulty. Patient was placed in the dorsal lithotomy position. Prepped and draped in the usual sterile manner for robotic procedure. Flannery catheter was placed without difficulty. Speculum was placed in the vagina. A large V-Care Uterine manipulator was placed without difficulty. Attention was now switched to the patient's abdomen. A vertical supra-umbilicus incision was made with a scalpel. A 10-12 trocar was placed in this incision under direct visualization. Intra-abdominal placement was verified with no evidence of internal organ damage. The patient pelvic findings were noted as above. It was determined that the patient was a candidate for robotic procedure. On both sides the umbilical incision at about 8 cm, incisions were made for robotic trocars. Each robotic trocar was placed under direct visualization with no evidence of internal organ damage. One 5 mm trocar was placed 2 fingerbreadths above the right iliac crest. A 5 mm camera was placed in the right lower quadrant trocar, the 10-12 trocar was removed and a Walt Robbins laparoscopic port closure device was placed through this incision under direct visualization with no evidence of internal organ damage. The camera was then replaced into this port. At this time the patient was placed in extreme Trendelenburg. The da Genaro robot was then docked on the patient's left side. The trocars connected to the robot appropriately robotic instruments were placed under direct visualization no evidence of internal organ damage.. At this time I took my place under the robotic operating elias. Starting on the patient's right side t he ureter was identified and found to be out of the operative field. Using the robotic vessel sealer the mesosalpinx under the fallopian tube were cauterized and cut starting from the distal end. Utero-ovarian complex was then cauterized and cut. This was followed by cauterizing and cutting the right fallopian tube and right round ligament. The broad ligament was then opened. The bladder flap was formed anteriorly. The posterior broad ligament was then excised. The uterine vessels were skeletonized. The ureter was clearly seen out of the operative field. The bladder was pushed away from the anterior uterus. The right uterine vessels were then cauterized and cut. Attention was then switched to the patient's left side. The same procedure was repeated on the left side with perform the salpingectomy followed by isolating the uterine vessels cauterized and cutting and completing the bladder flap from the left side. At this time the uterus was appearing very cyanotic. After inspecting the bladder flap to insured no evidence of bladder injury, the colpotomy was then started. Incision started at 6:00 until the V-Care could be seen. This incision was extended from 6:00 to 9:00. Then from 6:00 to 3:00. Then from 9:00 to 12:00. This incision was extended from 3:00 to 12:00. At this time colpotomy was complete with no evidence of adjacent organ damage. The assistant county attorney remove the uterus from through the colpotomy site. The vaginal cuff was irrigated and cauterized and found to be hemostatic. The cuff was closed with roboticly using 0 V- Lock suture. This closure was hemostatic after irrigation and Bovie. All pedicles were inspected and found to be hemostatic. The ureters were identified bilaterally and found to be functioning normal. The patient had clear urine in the Flannery catheter with no evidence of mixture with blood. Nancie was placed on the cuff and pedicles for postoperative hemostasis . All instruments were then removed. The large trocar sites were closed in layers 2-0 Vicryl and 4-0 Monocryl. The smaller incisions were closed subcuticularly with 4-0 Monocryl. Dermabond was placed over the skin incisions. The patient tolerated procedure well. She was awakened in the operating room and accompanied to the recovery room in good condition.
[2020-11-23] MEDS: DOCUSATE SODIUM 100 MG CAP PO SCH ×2 (12:33→21:28)
[2020-11-23 13:42] LABS: Hemoglobin 12.7 gm/dl (10.1-14.3)
[2020-11-23] MEDS: ONDANSETRON 4 MG/2 ML INJ IV PRN (14:33)
[2020-11-23] MEDS: ceFAZolin/NS 1 GM/50 ML 1 GM/50 ML BAG IV SCH ×2 (15:25→22:17)
[2020-11-23] MEDS ORDERED: KETOROLAC 30 MG/1 ML INJ IV PRN (16:00)
--- NOTE | 2020-11-23 16:09 | Post Anesthesia Evaluation ---
- Post Anesthesia Evaluation Patient Participated: Yes Airway Patent: Yes Stable Respiratory Function: Yes Nausea/Vomiting: No Temp > 96.8F: Yes Pain Manageable: Yes Adequeate Hydration: Yes Anesthesia Complications: No Block Receding Appropriately: Yes Patient on Ventilator: No
[2020-11-23] MEDS ORDERED: NalbUPHINE 10 MG/1 ML INJ IV PRN (18:06)
[2020-11-23] MEDS ORDERED: PROMETHAZINE 25 MG RECT SUPP PR PRN (18:55)
[2020-11-23] MEDS ORDERED: ACETAMINOPHEN 500 MG TAB PO SCH (19:00)
[2020-11-23] MEDS ORDERED: PREGABALIN 50 MG CAP PO SCH (22:00)
[2020-11-24] MEDS: HYDROcodone/ACETAMINOPHEN 5-325 MG TAB PO PRN ×2 (00:04→08:27)
[2020-11-24] MEDS: ONDANSETRON 4 MG/2 ML INJ IV PRN (08:27)
--- NOTE | 2020-11-24 11:26 | Short Stay Summary ---
Short Stay Documentation Date of service: 11/23/20 - History H&P: obtained from office Past Medical History: other (SEE HPI FOR DETAILS) Past Surgical History: Other (SEE HPI FOR DETAILS) Social history: full code, other (SEE HPI FOR DETAILS) - Allergies and Medications Current Medications: Allergies No Known Allergies Allergy (Verified 11/21/20 17:05) Home Medications Medication Instructions Recorded Confirmed Last Taken Type Ferrous Sulfate [Iron 325 MG] 325 mg PO DAILY 11/21/20 11/23/20 11/22/20 09:00 History Phentermine HCl 15 mg PO DAILY 11/21/20 11/23/20 11/12/20 09:00 History Ibuprofen [Motrin] 800 mg PO TID PRN #30 tablet 11/23/20 Unknown Rx oxyCODONE /ACETAMINOPHEN [Percocet 1 - 2 tab PO Q6HR PRN #20 tablet 11/23/20 Unknown Rx 5/325 mg] Active Medications Acetaminophen (Acetaminophen 325 Mg Tab) 650 mg PO Q6H [facility] Stop: 11/25/20 13:01 Hydrocodone Bitart/Acetaminophen (Hydrocodone/Acetaminophen 5-325 Mg Tab) 2 each PO Q6H PRN PRN Reason: Pain, Moderate (4-6) Last Admin: 11/24/20 08:27 Dose: 2 each Documented by: Docusate Sodium (Docusate Sodium 100 Mg Cap) 100 mg PO BID [facility] Last Admin: 11/23/20 21:28 Dose: 100 mg Documented by: Dextrose/Lactated Ringer's ([email or web address]) 1,000 mls @ 125 mls/hr IV DIRECT [facility] Last Admin: 11/23/20 21:21 Dose: 125 mls/hr Documented by: Ibuprofen (Ibuprofen 800 Mg Tab) 800 mg PO Q8H PRN PRN Reason: Pain, Mild (1-3) Ketorolac Tromethamine (Ketorolac 30 Mg/1 Ml Inj) 30 mg IV Q6H PRN PRN Reason: Pain, Moderate (4-6) Stop: 11/28/20 15:59 Last Admin: 11/23/20 17:05 Dose: 30 mg Documented by: Nalbuphine HCl (Nalbuphine 10 Mg/1 Ml Inj) 10 mg IV Q2H PRN PRN Reason: Pain , Severe (7-10) Ondansetron HCl (Ondansetron 4 Mg/2 Ml Inj) 4 mg IV Q8H PRN PRN Reason: Nausea And Vomiting Last Admin: 11/24/20 08:27 Dose: 4 mg Documented by: Pregabalin (Pregabalin 50 Mg Cap) 50 mg PO QHS LUZ ELENA Promethazine HCl (Promethazine 25 Mg Rect Supp) 25 mg VT Q6H PRN PRN Reason: Nausea And Vomiting Last Admin: 11/23/20 19:56 Dose: 25 mg Documented by: - Physical exam General appearance: no acute distress Integumentary: no rash HEENT: Atraumatic Lungs: Normal air movement Breasts: deferred Heart: Regular rate Gastrointestinal: normal, tenderness (Appropriate for robotic surgery), distended (Slightly compatible with morning after robotic surgery), obese, other (Surgical wound is healing without evidence of infection) Female Genitourinary: deferred Rectal Exam: deferred Extremities: no ischemia, pulses intact Neurological: Normal gait, Normal speech - Brief post op/procedure progress note Date of procedure: 11/24/20 - Hospital course Hospital course: Patient was admitted underwent the above him procedure without any complications. Patient was admitted and underwent above procedure without complications. Her post operative extended recovery observation course was complicated by nausea and vomiting. Patient had to be placed on clear liquid diet overnight. She was afebrile throughout. Patient had no orthostatic symptoms. Patient was tolerating regular diet and voiding without difficulty at time of discharge. Patient incision was healing well without evidence of infection. Patient will be discharged with follow-up in office in 1-2 weeks for postop check - Disposition Disposition: DC-01 TO HOME OR SELFCARE - Discharge Diagnoses (1) Menorrhagia Status: Acute Qualifiers: Menorrhagia type: with irregular cycle Qualified Code(s): N92.1 - Excessive and frequent menstruation with irregular cycle (2) Dysmenorrhea Status: Acute (3) Body mass index 45.0-49.9, adult Status: Chronic (4) Status post hysterectomy Status: Acute (5) Status post robot-assisted surgical procedure Status: Acute (6) Postoperative nausea and vomiting Status: Acute Short Stay Discharge Plan Activity: advance as tolerated Diet: regular Wound: open to air Additional Instructions: Patient to call office for any fever, chills, nausea, vomiting or pain not controlled by pain medication. Follow up with: JIMY AMES MD [Primary Care Provider] - 7 Days Prescriptions: Ibuprofen [Motrin] 800 mg PO TID PRN #30 tablet PRN Reason: Pain oxyCODONE /ACETAMINOPHEN [Percocet 5/325 mg] 1 - 2 tab PO Q6HR PRN #20 tablet PRN Reason: Pain
[2020-11-24 11:31] LABS: Hematocrit 38.1 % (30.3-42.9); Hemoglobin 12.3 gm/dl (10.1-14.3)
--- NOTE | 2020-11-24 11:33 | Progress Note ---
Assessment and Plan - Patient Problems (1) Menorrhagia Current Visit: No Status: Acute Qualifiers: Menorrhagia type: with irregular cycle Qualified Code(s): N92.1 - Excessive and frequent menstruation with irregular cycle (2) Dysmenorrhea Current Visit: No Status: Acute (3) Body mass index 45.0-49.9, adult Current Visit: No Status: Chronic (4) Status post hysterectomy Current Visit: Yes Status: Acute (5) Status post robot-assisted surgical procedure Current Visit: Yes Status: Acute (6) Postoperative nausea and vomiting Current Visit: Yes Status: Acute Plan to address problem: Patient unable to tolerate diet with vomiting requiring antiemetics. We will switch the patient to clear diet and advance her diet as tolerated we will watch her overnight Subjective Date of service: 11/23/20 Patient Reports: Positive: still having pain, voiding w/o difficulty, no flatus, nausea (With vomiting), vomiting, shortness of breath, afebrile Objective Vital Signs - 12hr 11/23/20 11/23/20 11/23/20 06:50 06:55 07:00 Temperature 97.8 F 97.8 F Pulse Rate 88 88 Respiratory 18 18 16 Rate Blood Pressure 127/77 127/77 O2 Sat by Pulse 96 96 Oximetry 11/23/20 11/23/20 11/23/20 07:20 07:21 07:25 Temperature Pulse Rate 64 65 Respiratory 15 16 14 Rate Blood Pressure 136/91 129/80 O2 Sat by Pulse 100 100 Oximetry 11/23/20 11/23/20 11/23/20 07:30 07:40 07:45 Temperature Pulse Rate 66 61 Respiratory 10 L 12 14 Rate Blood Pressure 117/69 O2 Sat by Pulse 97 97 Oximetry 11/23/20 11/23/20 11/23/20 10:02 10:05 10:10 Temperature 97.4 F L Pulse Rate 60 64 68 Respiratory 12 12 12 Rate Blood Pressure 149/85 145/84 151/88 O2 Sat by Pulse 100 100 100 Oximetry 11/23/20 11/23/20 11/23/20 10:15 10:27 10:30 Temperature Pulse Rate 61 58 L Respiratory 13 12 12 Rate Blood Pressure 160/94 163/91 O2 Sat by Pulse 100 98 Oximetry 11/23/20 11/23/20 11/23/20 10:42 10:45 10:52 Temperature Pulse Rate 65 Respiratory 12 12 12 Rate Blood Pressure 150/93 O2 Sat by Pulse 100 Oximetry 11/23/20 11/23/20 11/23/20 11:00 11:02 11:12 Temperature 97.3 F L Pulse Rate 65 Respiratory 12 12 12 Rate Blood Pressure 166/96 O2 Sat by Pulse 99 Oximetry 11/23/20 11/23/20 11/23/20 11:15 11:25 11:30 Temperature Pulse Rate 66 54 L 57 L Respiratory 12 12 Rate Blood Pressure 170/95 170/95 154/98 O2 Sat by Pulse 99 99 Oximetry 11/23/20 11/23/20 11/23/20 11:45 11:46 12:00 Temperature 97.6 F Pulse Rate 59 L 62 Respiratory 12 12 16 Rate Blood Pressure 148/75 140/74 O2 Sat by Pulse 99 99 Oximetry 11/23/20 12:15 Temperature 97.6 F Pulse Rate 62 Respiratory 16 Rate Blood Pressure 141/74 O2 Sat by Pulse 98 Oximetry - General physical appearance well developed - Respiratory normal expansion - Abdomen soft, tender (Appropriately postoperative), distended (Appropriately postop), surgical scars (Intact no evidence of infection) - Integumentary no rash, no growths, no abnormal pigmentation - Psychiatric oriented to time, oriented to person, oriented to place, speech is normal, memory intact - Labs 11/23/20 13:29 11/22/20 06:00
[2020-11-24] MEDS: ACETAMINOPHEN 325 MG TAB PO SCH ×2 (13:00→14:29)
[2020-11-24] MEDS: DOCUSATE SODIUM 100 MG CAP PO SCH (13:19)
[2020-11-24 14:28] VITALS: BP 130/77
== END 2020-11-24 15:25 | disposition home or self-care (01) ==
LOC: OR 06:33 → OB 10:00
PROVIDERS: ADMIT Obstetrics & Gynecology; ATTEND Obstetrics & Gynecology
DX: N92.0 Excessive and frequent menstruation with regular cycle (principal); N94.6 Dysmenorrhea, unspecified; D64.9 Anemia, unspecified; R53.83 Other fatigue; R11.2 Nausea with vomiting, unspecified; Z98.890 Other specified postprocedural states; Z68.42 Body mass index [BMI] 45.0-49.9, adult; Z68.41 Body mass index [BMI] 40.0-44.9, adult; Z90.710 Acquired absence of both cervix and uterus
CPT/HCPCS: 36415; 58571; 64450; 80048; 84703; 85014; 85018; 85025; 86850; 86900; 86901; 88307; 96361; 96365; 96366; 96375; 96376; A4217; G0378; J0360; J0690; J1100; J1170; J1885; J2250; J2405; J2704; J3010; J7120; J7121; S2900; 85007